=== PATIENT | female | born 1965 | race Caucasian/White ===

== ENCOUNTER 2017-07-09 08:57 | Outpatient (CLI) | payer BC | END 2017-07-09 23:59 | disposition home or self-care (01) | LOC: RT 08:57 | PROVIDERS: ATTEND Family Medicine | DX: P27.1 Bronchopulmonary dysplasia originating in the perinatal period (principal); J44.9 Chronic obstructive pulmonary disease, unspecified; J38.6 Stenosis of larynx | CPT/HCPCS: 94618 ==